=== PATIENT | female | born 1985 | race Hispanic/Latino ===

== ENCOUNTER 2018-06-06 15:00 | Inpatient (IN) | payer OTHER ==
[~2018-06-06] VITALS: Ht 165.1 cm; Wt 85.3 kg
[2018-06-06 16:35] LABS: HEMATOCRIT 38.5 % (36-48); MEAN CORPUSCULAR HEMOGLOBIN 32.7 pg (27.0-33.0); MEAN CORPUSCULAR HGB CONC 34.7 g/dL (32.0-36.0); MEAN CORPUSCULAR VOLUME 94.2 fL (79-99); PLATELET COUNT (AUTO) 147 K/uL (130-400); RED BLOOD CELL COUNT(AUTO) 4.09 MIL/uL (4.00-5.50); RED CELL DISTRIBUTION WIDTH 15.7 % (11.0-15.5); WHITE BLOOD COUNT (AUTO) 7.9 K/uL (4.8-10.8)
[2018-06-07] MEDS ORDERED: LACTATED RINGERS 1000ML 1,000 ML IV SCH (06:00)
[2018-06-07] MEDS ORDERED: CEFAZOLIN SODIUM 1 GM VIAL IVP PRN (06:00)
[2018-06-07] MEDS ORDERED: FENTANYL CITRATE PF 50 MCG/1 ML 2ML VIAL ONE ×2 (08:02→08:44)
[2018-06-07] MEDS ORDERED: DURAMORPH PF1 MG/ML 10ML AMP IV ONE (08:02)
[2018-06-07] MEDS ORDERED: CEFAZOLIN SODIUM 1 GM VIAL IVP ONE (08:05)
[2018-06-07] MEDS ORDERED: PHENYLEPHRINE HCL 10 MG/ML 1ML VIAL IV ONE (08:44)
[2018-06-07] MEDS ORDERED: SODIUM CHLORIDE 0.9% 10 ML VIAL ONE (08:44)
[2018-06-07] MEDS ORDERED: OXYTOCIN 10 UNIT/1ML 10ML VIAL ONE (08:44)
[2018-06-07] MEDS ORDERED: MEPERIDINE-PF 75 MG/ML SYG IM PRN (10:00)
[2018-06-07] MEDS ORDERED: OXYTOCIN-LR 20 UNITS/1000 ML 1,000 ML IV PRN (10:00)
[2018-06-07] MEDS ORDERED: PROMETHAZINE HCL 25 MG/ML 1ML AMPULE IM PRN ×2 (10:00→13:00)
[2018-06-07] MEDS ORDERED: SODIUM CHLORIDE 0.9% 10 ML VIAL IVP PRN (10:00)
[2018-06-07 10:15] VITALS: BP 109/57
[2018-06-07] MEDS ORDERED: PNV1TABL17 PO (10:26)
[2018-06-07] MEDS ORDERED: OXYTOCIN 10 USP UNITS/ML ONE (11:35)
[2018-06-07 11:42] VITALS: BP 107/53
[2018-06-07] MEDS: HYDROCODONE/ACETAMINOPHEN 5/325 MG TAB PO PRN ×2 (12:58→23:56)
[2018-06-07] MEDS ORDERED: HYDROCODONE/ACETAMINOPHEN 5/325 MG TAB PO PRN (13:00)
[2018-06-07] MEDS ORDERED: METOCLOPRAMIDE 10 MG/2 ML VIAL IVP PRN (13:00)
[2018-06-07] MEDS ORDERED: ONDANSETRON HCL 4 MG/2 ML 8 MG in SODIUM CHLORIDE 0.9% 50 ML IVP NR (13:00)
[2018-06-07] MEDS ORDERED: DiphenhydrAMINE HCL 50 MG/ML VIAL IVP PRN (13:00)
[2018-06-07] MEDS ORDERED: EPHEDRINE SULFATE 50 MG/ML AMPULE IVP PRN (13:00)
[2018-06-07] MEDS ORDERED: NALOXONE HCL 0.4 MG/1 ML ML IVP PRN (13:00)
[2018-06-07] MEDS ORDERED: MORPHINE SULFATE 2 MG/ML 1ML SYG IVP PRN (13:00)
[2018-06-07] MEDS ORDERED: ONDANSETRON HCL 4 MG/2 ML VIAL IVP PRN ×2 (13:00)
[2018-06-07 15:42] VITALS: BP 111/64
[2018-06-07] MEDS: DEXTROSE 5 %-0.45 % NACL 1,000 ML IV PRN (18:18)
[2018-06-07 20:20] VITALS: BP 123/63
[2018-06-08] VITALS (7 sets, daily range): BP systolic 98–112; BP diastolic 52–74
[2018-06-08] MEDS: DEXTROSE 5 %-0.45 % NACL 1,000 ML IV PRN (01:01)
[2018-06-08] MEDS: HYDROCODONE/ACETAMINOPHEN 5/325 MG TAB PO PRN ×3 (04:11→15:29)
[2018-06-08 06:48] LABS: MEAN CORPUSCULAR HEMOGLOBIN 32.2 pg (27.0-33.0); MEAN CORPUSCULAR HGB CONC 33.4 g/dL (32.0-36.0); MEAN CORPUSCULAR VOLUME 96.4 fL (79-99); NUCLEATED RED BLOOD CELLS 0.1 % (0.0-0.19); PLATELET COUNT (AUTO) 136 K/uL (130-400); RED BLOOD CELL COUNT(AUTO) 4.25 MIL/uL (4.00-5.50); WHITE BLOOD COUNT (AUTO) 9.1 K/uL (4.8-10.8)
[2018-06-08 07:35] LABS: HEPATITIS Bs ANTIGEN SCREEN P Negative (Negative)
[2018-06-08] MEDS ORDERED: ACETAMINOPHEN EXTRA STRENGTH 500 MG TABLET PO PRN ×2 (08:00→08:15)
[2018-06-08] MEDS ORDERED: ACETAMINOPHEN-CODEINE 300/30MG TAB PO PRN ×2 (08:00→08:15)
[2018-06-08] MEDS ORDERED: BISACODYL 10 MG SUPP.RECT RC PRN ×2 (08:00→08:15)
[2018-06-08] MEDS ORDERED: SIMETHICONE 80 MG TAB.CHEW PO PRN (08:00)
[2018-06-08] MEDS ORDERED: SODIUM CHLORIDE 0.9% 10 ML VIAL IVP PRN ×2 (08:00→08:15)
[2018-06-08] MEDS ORDERED: IBUPROFEN 600 MG TABLET PO PRN (08:00)
[2018-06-08] MEDS ORDERED: LANOLIN 30GM OINTMENT TP PRN (08:15)
[2018-06-08] MEDS ORDERED: DOCUSATE SODIUM 100 MG CAP PO SCH (09:00)
[2018-06-08] MEDS: DOCUSATE SODIUM 100 MG CAP PO SCH ×2 (09:34→20:39)
[2018-06-08] MEDS: SIMETHICONE 80 MG TAB.CHEW PO PRN ×3 (09:34→20:38)
[2018-06-08] MEDS: IBUPROFEN 600 MG TABLET PO PRN (20:39)
[2018-06-09 03:21] VITALS: BP 103/57
[2018-06-09 07:41] VITALS: BP 102/52
[2018-06-09] MEDS: DOCUSATE SODIUM 100 MG CAP PO SCH (08:38)
[2018-06-09] MEDS: IBUPROFEN 600 MG TABLET PO PRN (08:39)
[2018-06-09 11:35] VITALS: BP 108/74
== END 2018-06-09 14:30 | disposition home or self-care (01) | DRG 766 ==
LOC: EDBD 15:00 → LDH 06-07 05:41 → WSH 06-07 10:15
PROVIDERS: ADMIT Obstetrics & Gynecology; ATTEND Obstetrics & Gynecology
PROC: 0UL70ZZ Occlusion of Bilateral Fallopian Tubes, Open Approach (ICD-10-PCS; 2018-06-07)
PROC: 10D00Z1 Extraction of Products of Conception, Low, Open Approach (ICD-10-PCS; principal; 2018-06-07 08:00)
DX: O34.211 Maternal care for low transverse scar from previous cesarean delivery (principal); Z3A.39 39 weeks gestation of pregnancy; Z37.0 Single live birth; Z30.2 Encounter for sterilization; Z28.21 Immunization not carried out because of patient refusal
CPT/HCPCS: 36415; 59510; 85027; 86592; 86850; 86900; 86901; 87340; 88302; A4344; A4450; A4606; J0690; J2274; J2370; J2590; J3010; J7120